=== PATIENT | male | born 1975 | race Caucasian/White ===

== ENCOUNTER → 2016-11-09 | Outpatient (CLI) | payer OTHER | LOC: COL.RAD 13:07 | DX: R10.11 Right upper quadrant pain (principal) ==

== ENCOUNTER → 2016-11-11 | Outpatient (CLI) | payer OTHER | LOC: COL.RAD 12:20 | DX: R10.11 Right upper quadrant pain (principal) | CPT/HCPCS: A9502; A9537 ==